=== PATIENT | male | born 1950 | race Caucasian/White ===

== ENCOUNTER 2016-12-24 13:52 | Emergency (ER) | payer OTHER ==
[~2016-12-24] VITALS: Ht 175.3 cm; Wt 90.7 kg
[2016-12-24 14:28] LABS: BASOPHILS % (AUTO) 0.4 % (0.0-2.0); DIFF TOTAL % 100 %; EOSINOPHILS # (AUTO) 0.1 /CMM (0.0-0.7); HEMATOCRIT 49 % (39-51); HEMOGLOBIN 16.4 g/dL (13.5-17.5); LYMPHOCYTES # (AUTO) 1.4 /CMM (0.8-4.8); LYMPHOCYTES % (AUTO) 12.3 % (20.0-44.0); MEAN CORPUSCULAR HEMOGLOBIN 30 PG (26.0-33.0); MEAN CORPUSCULAR HGB CONC 34 g/dl (31.0-36.0); MEAN CORPUSCULAR VOLUME 89 fL (80-96); MONOCYTES # (AUTO) 0.7 /CMM (0.1-1.30); MONOCYTES % (AUTO) 6.3 % (2.0-12.0); NEUTROPHILS # (AUTO) 9.3 /CMM (1.8-8.9); PLATELET COUNT (AUTO) 187 /CMM (150-450); RED BLOOD CELL COUNT(AUTO) 5.46 MIL/uL (4.5-6.0); WHITE BLOOD COUNT (AUTO) 11.5 K/uL (4.3-11.0)
[2016-12-24 14:38] LABS: ANION GAP 15 (5-14); CALCIUM, SERUM 9.1 mg/dL (8.5-10.1); CARBON DIOXIDE 25 mmol/L (21-32); CHLORIDE 109 mmol/L (98-107); CREATININE 1.7 mg/dL (0.6-1.3); GFR 41 mL/min (>60); GLUCOSE 138 mg/dL (74-106); POTASSIUM 3.8 mmol/L (3.5-5.1); SODIUM SERUM 145 mmol/L (136-145); UREA NITROGEN, BLOOD 18 mg/dL (7-18)
[2016-12-24 14:43] LABS: ALANINE AMINOTRANSFERASE 36 U/L (12-78); ALBUMIN 3.3 g/dL (3.4-5.0); ASPARTATE AMINOTRANSFERASE 22 U/L (15-37); BILIRUBIN,DIRECT 0.1 mg/dL (0.0-0.2); BILIRUBIN,TOTAL 0.4 mg/dL (0.2-1.0); INDIRECT BILIRUBIN 0.3 mg/dL (0.0-1.1); SALICYLATE 3.1 mg/dL (2.8-20.0); TOTAL PROTEIN, SERUM 7.4 g/dL (6.4-8.2)
[2016-12-24 14:44] LABS: ACETAMINOPHEN 0 ug/ml (10-30)
[2016-12-24 15:12] LABS: KETONES,URINE Negative (NEGATIVE); LEUKOCYTE ESTERASE ,URINE Negative (NEGATIVE); PH,URINE 6.5 (5.0-8.0)
[2016-12-24 15:16] LABS: ADD UA MICROSCOPIC YES
[2016-12-24 15:20] LABS: ADD URINE CULTURE NO; RBC,URINE 51-80 /HPF (0-2)
[2016-12-24 15:23] LABS: CANNABINOID, URINE NEGATIVE (NEGATIVE); PHENCYCLIDINE SCREEN,URINE NEGATIVE (NEGATIVE)
[2016-12-24] MEDS ORDERED: ATENOLOL 50 MG TABLET ONE (19:42)
[2016-12-24] MEDS ORDERED: AMLODIPINE BESYLATE 5 MG TABLET ONE (19:42)
[2016-12-24] MEDS ORDERED: AMLODIPINE BESYLATE 5 MG TABLET PO ONE (20:00)
[2016-12-24] MEDS ORDERED: ATENOLOL 50 MG TABLET PO ONE (20:00)
[2016-12-24] MEDS ORDERED: MORPHINE SULFATE INJ 4 MG/ML DISP.SYRIN ONE (20:46)
[2016-12-24] MEDS ORDERED: MORPHINE SULFATE INJ 2 MG/ML DISP.SYRIN IM ONE (21:00)
[2016-12-24] MEDS ORDERED: CLONIDINE HCL 0.1 MG TABLET ONE (21:44)
[2016-12-24] MEDS ORDERED: CLONIDINE HCL 0.1 MG TABLET PO ONE (22:00)
[2016-12-24 23:09] VITALS: BP 162/75
== END 2016-12-24 23:14 ==
LOC: ER 13:55
DX: R45.851 Suicidal ideations (principal); N28.9 Disorder of kidney and ureter, unspecified; F32.9 Major depressive disorder, single episode, unspecified
CPT/HCPCS: 36415; 80048; 80076; 80305; 80329; 81001; 85025; 96372; 99285; A4606; G0480 ×2; J2270; 81000-TC; G6039-TC; Z7610